=== PATIENT | male | born 1990 | race Caucasian/White ===

== ENCOUNTER 2022-06-18 10:03 | Emergency (ER) | payer OTHER ==
[~2022-06-18] VITALS: Ht 170.2 cm; Wt 81.6 kg
--- NOTE | 2022-06-18 10:14 | NUR ---
BIBS WITH NAIL PUNCTURE ON L FOOD/ NO UTD WITH TDAP. VITALS ARE WITHIN NORMAL LIMTIS. AWAITING MD CROWELL.
[2022-06-18] MEDS ORDERED: TDAP [DIPH/PERTUSSIS/TET] 0.5 ML VIAL IM ONE ×2 (10:28→10:30)
[2022-06-18] MEDS ORDERED: CEPHALEXIN MONOHYDRATE 500 MG CAPSULE PO ONE ×2 (10:28→10:30)
--- NOTE | 2022-06-18 10:39 | NUR ---
X RAY AT BEDSIDE
[2022-06-18] MEDS ORDERED: CEPH500C2 PO (11:13)
--- NOTE | 2022-06-18 11:22 | NUR ---
Patient discharged to home in stable condition. Written and verbal after care instructions given. Patient verbalizes understanding of instruction.
[2022-06-18 11:23] VITALS: BP 138/85
== END 2022-06-18 11:23 | disposition home or self-care (01) ==
LOC: ER 10:09
DX: S91.332A Puncture wound without foreign body, left foot, initial encounter (principal); Z88.1 Allergy status to other antibiotic agents; X58.XXXA Exposure to other specified factors, initial encounter; Y93.89 Activity, other specified; Y92.89 Other specified places as the place of occurrence of the external cause; Y99.8 Other external cause status
CPT/HCPCS: 73630-TC; 90715